=== PATIENT | male | born 1985 | race Two or more races ===

== ENCOUNTER 2017-03-22 08:42 | Emergency (ER) | payer MEDICAID ==
[2017-03-22] MEDS ORDERED: LORazepam 1 MG TAB PO ONE (09:05)
[2017-03-22] MEDS ORDERED: ONDANSETRON DISINTEGRATING 4 MG TAB PO ONE (09:06)
--- NOTE | 2017-03-22 09:07 | EDPHY ---
H & P Time Seen by Provider: 03/22/17 09:02 HPI/ROS: CHIEF COMPLAINT: Heroin withdrawal HPI: The patient is a 31-year-old male with a history of heroin use. Patient states that he is normally on methadone but missed several doses his medication which caused him to be kicked out of his clinic. This caused him to relapse and began to use heroin again. His last use was last night. He now complains of symptoms of opiate withdrawal including nausea, vomiting, irritability and diarrhea. Requests help with the symptoms as well as help getting into a long- term treatment program. No fever or recent trauma. REVIEW OF SYSTEMS: Aside from elements discussed in the HPI, a comprehensive 10-point review of systems was reviewed and is negative. PMH: Heroin abuse. SOCIAL HISTORY: Admits to heroin abuse. In relationship. PHYSICAL EXAM: General:Patient is alert, in no acute distress. ENT:Eyes are normal to inspection. ENT inspection normal. Neck: Normal inspection. Full range of motion. Respiratory:No respiratory distress. Breath sounds normal bilaterally. Cardiovascular: Regular rate and rhythm. Strong peripheral pulses. Normal cap refill. Abdomen:The abdomen is nontender to palpation. There are no peritoneal signs. There are normal bowel sounds. Back: Normal to inspection. No tenderness to palpation. Skin: Normal color. No rash. Warm and dry. Extremities: Normal appearance. Full range of motion. Neuro: Oriented x3. Normal motor function. Normal sensory function. Smoking Status: Never smoked Constitutional: Initial Vital Signs Temperature (C) 36.9 C 03/22/17 08:51 Heart Rate 70 03/22/17 08:51 Respiratory Rate 18 03/22/17 08:51 Blood Pressure 140/93 H 03/22/17 08:51 O2 Sat (%) 97 03/22/17 08:51 O2 Delivery Mode Room Air Allergies/Adverse Reactions: Penicillins Allergy (Verified 03/22/17 08:50) Home Medications: Medication Instructions Recorded LORAZEPAM 03/22/17 MDM/Departure - MDM Medications Given: Discontinued Medications Clonidine (Catapres) 0.1 mg PO EDNOW ONE Stop: 03/22/17 09:06 Last Admin: 03/22/17 09:13 Dose: 0.1 mg Lorazepam (Ativan) 1 mg PO EDNOW ONE Stop: 03/22/17 09:06 Last Admin: 03/22/17 09:13 Dose: 1 mg Ondansetron HCl (Zofran Odt) 4 mg PO EDNOW ONE Stop: 03/22/17 09:07 Last Admin: 03/22/17 09:13 Dose: 4 mg ED Course/Re-evaluation: I spoke to our Director Of Education And Training, Krystina, who spoke to the [facility]. It is unclear if they will see him secondary to methadone use, but I have given him their number. The patient is really only in mild withdrawal at this point, with normal vital signs, and he does not require IV medications or hospitalization. - Depart Disposition: Home, Routine, Self-Care Clinical Impression: Opiate withdrawal Condition: Good Instructions: Narcotic Abuse (ED) Additional Instructions: We recommend that you call the [facility] at [phone]. Referrals: NONE *PRIMARY CARE P,. [Primary Care Provider] - As per Instructions
[2017-03-22 09:58] VITALS: BP 121/73; PULSE 62; RESP 16; TEMP 97.5; O2SAT 96
== END 2017-03-22 10:10 | disposition home or self-care (01) ==
LOC: CED 08:42
DX: F11.23 Opioid dependence with withdrawal (principal)